=== PATIENT | male | born 1965 | race Caucasian/White ===

== ENCOUNTER 2017-11-08 14:09 | Outpatient (CLI) | payer OTHER ==
[~2017-11-08 14:09] MED LIST: Gadobenate Dimeglumine 529 MG/1 ML (20ML VIAL) ONE
--- NOTE | 2017-11-08 15:36 | RAD ---
MODIFIED BARIUM SWALLOW WITH SPEECH THERAPY 11/08/17 HISTORY: Difficulty swallowing. COMPARISON: None. FINDINGS: The patient was given multiple consistencies of contrast by the speech pathologist. There was aspirat ion with double swallow of thin liquid contrast material. No aspiration or penetration with pudding, nectar, contrast of contrast covered gram cracker. Tablet passed. IMPRESSION: Aspiration with a double swallow thin contrast. Please see speech pathologist report for further details. FLUORO TIME: 1.3 minutes. DOSE: 0.298 Gy^2cm. POS: [facility]
--- NOTE | 2017-11-08 16:47 | MRI ---
EXAM: BRAIN MRI WITH AND WITHOUT CONTRAST 11/08/17 HISTORY: Dysphagia, difficulty speaking and swallowing x6 months. COMPARISON: None. TECHNIQUE: Brain MRI is performed with and without intravenous gadolinium administration. Multisequential, multi planar imaging is performed. FINDINGS: No evidence of hemorrhage on the axial gradient echo sequence. Central arterial flow voids are mainta ined. Absent restricted diffusion. No significant T2 or FLAIR white matter hyperintensities. The calvarium has a normal T1 marrow signal intensity. Midline brain parenchymal structures are unrem arkable. There is paranasal sinus disease. There is adequate aeration of the mastoid air cells. No parenchymal mass, mass effect or midline shift. Brain volume is age appropriate. Cortical tucker-whi te matter differentiation is preserved. Ventricles and sulci are patent and symmetric. No pathologic enhancement of the brain parenchyma. The re is slight kinking of the cervicomedullary junction due to the angulation of the odontoid process. No abnormal signal intensity. Significance is uncertain. IMPRESSION: 1. Absence restricted diffusion. 2. No acute infarct. 3. Slight kinking of the cervicomedullary junction due to the angulation of the odontoid process . Correlate clinically. 1. POS: [facility]
== END 2017-11-08 14:10 | disposition home or self-care (01) ==
LOC: RAD 14:09
PROVIDERS: ATTEND Psychiatry & Neurology Neurology
DX: I69.891 Dysphagia following other cerebrovascular disease (principal); R13.10 Dysphagia, unspecified; G12.29 Other motor neuron disease; R47.1 Dysarthria and anarthria; R94.8 Abnormal results of function studies of other organs and systems; R94.02 Abnormal brain scan
CPT/HCPCS: 70553; 74230; A9579; G8996-GN-CI; G8997-GN-CI; G8998-GN-CI